=== PATIENT | male | born 1995 | race African-American/Black ===

== ENCOUNTER 2019-05-04 20:20 | Emergency (ER) | payer OTHER ==
[~2019-05-04] VITALS: Ht 175.3 cm; Wt 61.4 kg
[2019-05-04] MEDS ORDERED: ELVI1TAB3 PO (20:40)
[2019-05-04] MEDS ORDERED: LIDOCAINE 5% TRANSDERMAL PATCH TD ONE (21:15)
[2019-05-04] MEDS ORDERED: CYCLOBENZAPRINE HCL 10 MG TABLET PO ONE (21:15)
[2019-05-04] MEDS ORDERED: IBUPROFEN 600 MG TABLET PO ONE (21:15)
[2019-05-04 22:53] VITALS: BP 115/75
== END 2019-05-04 22:55 | disposition home or self-care (01) ==
LOC: EMS 20:21
DX: M54.5 Low back pain (principal); F17.210 Nicotine dependence, cigarettes, uncomplicated; F12.90 Cannabis use, unspecified, uncomplicated; V49.9XXA Car occupant (driver) (passenger) injured in unspecified traffic accident, initial encounter; Y93.89 Activity, other specified; Y92.89 Other specified places as the place of occurrence of the external cause; Y99.8 Other external cause status
CPT/HCPCS: 72072; 72100